=== PATIENT | male | born 1975 | race Caucasian/White ===

== ENCOUNTER 2017-09-01 23:37 | Inpatient (IN) | payer OTHER ==
[2017-09-02] MEDS ORDERED: SODIUM CHLORIDE 0.9% 1,000 ML IV STA ×2 (00:43→07:45)
--- NOTE | 2017-09-02 00:47 | ED ---
Overdose HPI <MikeJose - Last Filed: 09/02/17 07:40> - General Source: patient Mode of arrival: EMS Limitations: no limitations <Abi Cabrales - Last Filed: 09/03/17 07:22> - General Chief Complaint: Overdose Stated Complaint: overdose Time Seen by Provider: 09/02/17 00:26 - History of Present Illness Initial Comments: 42-year-old male patient presents to the emergency department today after having a syncopal episode. Patient states that he does not remember what happened. EMS reported that upon their arrival patient was breathing 4 times per minute, they did administer Narcan, patient regained consciousness was breathing normally after that. Patient denies using any street drugs, states he did have a couple of beers. Patient states he passed out once before, a long time ago, states that he had a negative workup at that time. Patient currently denies any symptoms and states that he feels well other than a dry mouth. States his only past medical history is low back pain for which she just takes plain Tylenol at home. Patient denies any recent rash, fever, chills , shortness breath, chest pain, abdominal pain, nausea, vomiting, diarrhea, constipation, back pain, numbness, tingling, dizziness, weakness, hematuria, dysuria, urinary urgency, urinary frequency, headache, visual changes, or any other complaints. (Abi Cabrales) - Related Data Home Medications Medication Instructions Recorded Confirmed Multivitamins, Thera [Multivitamin 1 tab PO DAILY 09/02/17 09/02/17 (formulary)] Allergies Allergy/AdvReac Type Severity Reaction Status Date / Time No Known Allergies Allergy Verified 09/02/17 11:11 Review of Systems ROS Other: All systems not noted in ROS Statement are negative. <Jose Mckeon - Last Filed: 09/02/17 07:40> ROS Other: All systems not noted in ROS Statement are negative. <Abi Cabrales - Last Filed: 09/03/17 07:22> ROS Statement: Those systems with pertinent positive or pertinent negative responses have been documented in the HPI. Past Medical History Past Medical History: No Reported History Additional Past Medical History / Comment(s): chronic back pain History of Any Multi-Drug Resistant Organisms: None Reported Past Surgical History: No Surgical Hx Reported Past Psychological History: No Psychological Hx Reported Smoking Status: Current every day smoker Past Alcohol Use History: Occasional Past Drug Use History: Heroin <Abi Cabrales - Last Filed: 09/03/17 07:22> General Exam Limitations: no limitations General appearance: alert, in no apparent distress, other (So well-developed, well-nourished adult male patient in no acute distress. Vital signs upon presentation are temperature 98.4F, pulse 101, respirations 18, blood pressure 101/73, pulse ox 96% on room air.) Head exam: Present: atraumatic, normocephalic, normal inspection Eye exam: Present: normal appearance, PERRL, EOMI, other (Pupils are pinpoint). Absent: scleral icterus, conjunctival injection, periorbital swelling ENT exam: Present: normal exam, normal oropharynx, mucous membranes moist Neck exam: Present: normal inspection. Absent: tenderness, meningismus, lymphadenopathy Respiratory exam: Present: normal lung sounds bilaterally. Absent: respiratory distress, wheezes, rales, rhonchi, stridor Cardiovascular Exam: Present: regular rate, normal rhythm, normal heart sounds. Absent: systolic murmur, diastolic murmur, rubs, gallop, clicks GI/Abdominal exam: Present: soft, normal bowel sounds. Absent: distended, tenderness, guarding, rebound, rigid Neurological exam: Present: alert, oriented X3, CN II-XII intact, other ( Strength in all 4 extremities is 5/5.) Psychiatric exam: Present: normal affect, normal mood Skin exam: Present: warm, dry, intact, normal color. Absent: rash <Abi Cabrales - Last Filed: 09/03/17 07:22> Course <Jose Mckeon - Last Filed: 09/02/17 07:40> <Abi Cabrales - Last Filed: 09/03/17 07:22> Vital Signs 09/01/17 09/02/17 09/02/17 23:44 00:08 05:00 Temperature 98.4 F Pulse Rate 101 H 89 89 Respiratory 18 14 Rate Blood Pressure 101/73 92/59 O2 Sat by Pulse 96 98 97 Oximetry 09/02/17 09:05 Temperature Pulse Rate 75 Respiratory 16 Rate Blood Pressure 120/59 O2 Sat by Pulse 99 Oximetry - Reevaluation(s) Reevaluation #1: 09/02/17 06:04 We have repeated CMP and troponin after patient has received fluids. Care will be handed over to Dr. Mckeon who will follow patient until disposition. (Abi Cabrales) Medical Decision Making - Lab Data Result diagrams: 09/02/17 02:00 09/02/17 05:40 <Jose Mckeon - Last Filed: 09/02/17 07:40> - Lab Data Result diagrams: 09/03/17 06:03 09/03/17 06:03 - EKG Data -: EKG Interpreted by Me - Radiology Data Radiology results: report reviewed, image reviewed <Abi Cabrales - Last Filed: 09/03/17 07:22> - Medical Decision Making 42-year-old male patient presented to the emergency department today via EMS with concern for opiate overdose. Physical examination at the time of arrival is unremarkable, patient was alert and oriented. Initial labs did show elevated potassium, acute renal failure with elevated troponin. We did administer 2 L of IV fluids and repeated labs. Care was handed over to Dr. Mckeon at that time. (Abi Cabrales) - Lab Data Lab Results 09/02/17 09/02/17 09/02/17 Range/Units 02:00 02:00 02:00 WBC 20.3 H (3.8-10.6) k/uL RBC 5.17 (4.30-5.90) m/uL Hgb 15.7 (13.0-17.5) gm/dL Hct 49.5 (39.0-53.0) % MCV 95.8 (80.0-100.0) fL MCH 30.4 (25.0-35.0) pg MCHC 31.7 (31.0-37.0) g/dL RDW 13.5 (11.5-15.5) % Plt Count 250 (150-450) k/uL Neutrophils % 87 % Lymphocytes % 4 % Monocytes % 8 % Eosinophils % 0 % Basophils % 0 % Neutrophils # 17.6 H (1.3-7.7) k/uL Lymphocytes # 0.8 L (1.0-4.8) k/uL Monocytes # 1.7 H (0-1.0) k/uL Eosinophils # 0.1 (0-0.7) k/uL Basophils # 0.0 (0-0.2) k/uL PT (9.0-12.0) sec INR (<1.2) APTT (22.0-30.0) sec Sodium 140 (137-145) mmol/L Potassium 6.5 H* (3.5-5.1) mmol/L Chloride 101 (98-107) mmol/L Carbon Dioxide 20 L (22-30) mmol/L Anion Gap 19 mmol/L BUN 19 (9-20) mg/dL Creatinine 2.50 H (0.66-1.25) mg/dL Est GFR (CKD-EPI)AfAm 35 (>60 ml/min/1.73 sqM) Est GFR (CKD-EPI)NonAf 31 (>60 ml/min/1.73 sqM) Glucose 57 L (74-99) mg/dL Calcium 9.4 (8.4-10.2) mg/dL Total Bilirubin 0.5 (0.2-1.3) mg/dL AST 79 H (17-59) U/L ALT 125 H (21-72) U/L Alkaline Phosphatase 72 (38-126) U/L Total Creatine Kinase 395 H (55-170) U/L CK-MB (CK-2) 4.6 H* (0.0-2.4) ng/mL CK-MB (CK-2) Rel Index 1.2 Troponin I 0.149 H* (0.000-0.034) ng/mL Total Protein 8.5 H (6.3-8.2) g/dL Albumin 5.3 H (3.5-5.0) g/dL Urine Color Urine Appearance (Clear) Urine pH (5.0-8.0) Ur Specific [place] (1.001-1.035) Urine Protein (Negative) Urine Glucose (UA) (Negative) Urine Ketones (Negative) Urine Blood (Negative) Urine Nitrite (Negative) Urine Bilirubin (Negative) Urine Urobilinogen (<2.0) mg/dL Ur Leukocyte Esterase (Negative) Urine RBC (0-5) /hpf Urine WBC (0-5) /hpf Urine Bacteria (None) /hpf Cellular Casts (0) /lpf Hyaline Casts (0-2) /lpf Granular Casts (0) /lpf Urine Mucus (None) /hpf Urine Opiates Screen (NotDetected) Ur Oxycodone Screen (NotDetected) Urine Methadone Screen (NotDetected) Ur Propoxyphene Screen (NotDetected) Ur Barbiturates Screen (NotDetected) U Tricyclic Antidepress (NotDetected) Ur Phencyclidine Scrn (NotDetected) Ur Amphetamines Screen (NotDetected) U Methamphetamines Scrn (NotDetected) U Benzodiazepines Scrn (NotDetected) Urine Cocaine Screen (NotDetected) U Marijuana (THC) Screen (NotDetected) Serum Alcohol <10 mg/dL 09/02/17 09/02/17 09/02/17 Range/Units 02:00 02:00 02:00 WBC (3.8-10.6) k/uL RBC (4.30-5.90) m/uL Hgb (13.0-17.5) gm/dL Hct (39.0-53.0) % MCV (80.0-100.0) fL MCH (25.0-35.0) pg MCHC (31.0-37.0) g/dL RDW (11.5-15.5) % Plt Count (150-450) k/uL Neutrophils % % Lymphocytes % % Monocytes % % Eosinophils % % Basophils % % Neutrophils # (1.3-7.7) k/uL Lymphocytes # (1.0-4.8) k/uL Monocytes # (0-1.0) k/uL Eosinophils # (0-0.7) k/uL Basophils # (0-0.2) k/uL PT 10.1 (9.0-12.0) sec INR 1.0 (<1.2) APTT 19.5 L (22.0-30.0) sec Sodium (137-145) mmol/L Potassium (3.5-5.1) mmol/L Chloride (98-107) mmol/L Carbon Dioxide (22-30) mmol/L Anion Gap mmol/L BUN (9-20) mg/dL Creatinine (0.66-1.25) mg/dL Est GFR (CKD-EPI)AfAm (>60 ml/min/1.73 sqM) Est GFR (CKD-EPI)NonAf (>60 ml/min/1.73 sqM) Glucose (74-99) mg/dL Calcium (8.4-10.2) mg/dL Total Bilirubin (0.2-1.3) mg/dL AST (17-59) U/L ALT (21-72) U/L Alkaline Phosphatase (38-126) U/L Total Creatine Kinase (55-170) U/L CK-MB (CK-2) (0.0-2.4) ng/mL CK-MB (CK-2) Rel Index Troponin I (0.000-0.034) ng/mL Total Protein (6.3-8.2) g/dL Albumin (3.5-5.0) g/dL Urine Color Yellow Urine Appearance Cloudy (Clear) Urine pH 5.5 (5.0-8.0) Ur Specific [place] 1.013 (1.001-1.035) Urine Protein 3+ H (Negative) Urine Glucose (UA) Negative (Negative) Urine Ketones Negative (Negative) Urine Blood Trace H (Negative) Urine Nitrite Negative (Negative) Urine Bilirubin Negative (Negative) Urine Urobilinogen <2.0 (<2.0) mg/dL Ur Leukocyte Esterase Negative (Negative) Urine RBC 3 (0-5) /hpf Urine WBC 29 H (0-5) /hpf Urine Bacteria Rare H (None) /hpf Cellular Casts 20 (0) /lpf Hyaline Casts 101 H (0-2) /lpf Granular Casts 61 (0) /lpf Urine Mucus Many H (None) /hpf Urine Opiates Screen Detected H (NotDetected) Ur Oxycodone Screen Not Detected (NotDetected) Urine Methadone Screen Not Detected (NotDetected) Ur Propoxyphene Screen Not Detected (NotDetected) Ur Barbiturates Screen Not Detected (NotDetected) U Tricyclic Antidepress Not Detected (NotDetected) Ur Phencyclidine Scrn Not Detected (NotDetected) Ur Amphetamines Screen Not Detected (NotDetected) U Methamphetamines Scrn Not Detected (NotDetected) U Benzodiazepines Scrn Not Detected (NotDetected) Urine Cocaine Screen Detected H (NotDetected) U Marijuana (THC) Screen Not Detected (NotDetected) Serum Alcohol mg/dL 09/02/17 09/02/17 Range/Units 05:40 05:40 WBC (3.8-10.6) k/uL RBC (4.30-5.90) m/uL Hgb (13.0-17.5) gm/dL Hct (39.0-53.0) % MCV (80.0-100.0) fL MCH (25.0-35.0) pg MCHC (31.0-37.0) g/dL RDW (11.5-15.5) % Plt Count (150-450) k/uL Neutrophils % % Lymphocytes % % Monocytes % % Eosinophils % % Basophils % % Neutrophils # (1.3-7.7) k/uL Lymphocytes # (1.0-4.8) k/uL Monocytes # (0-1.0) k/uL Eosinophils # (0-0.7) k/uL Basophils # (0-0.2) k/uL PT (9.0-12.0) sec INR (<1.2) APTT (22.0-30.0) sec Sodium 135 L (137-145) mmol/L Potassium 6.4 H* (3.5-5.1) mmol/L Chloride 104 (98-107) mmol/L Carbon Dioxide 20 L (22-30) mmol/L Anion Gap 11 mmol/L BUN 19 (9-20) mg/dL Creatinine 2.10 H (0.66-1.25) mg/dL Est GFR (CKD-EPI)AfAm 44 (>60 ml/min/1.73 sqM) Est GFR (CKD-EPI)NonAf 38 (>60 ml/min/1.73 sqM) Glucose 83 (74-99) mg/dL Calcium 8.0 L (8.4-10.2) mg/dL Total Bilirubin 0.4 (0.2-1.3) mg/dL AST 67 H (17-59) U/L ALT 107 H (21-72) U/L Alkaline Phosphatase 58 (38-126) U/L Total Creatine Kinase (55-170) U/L CK-MB (CK-2) (0.0-2.4) ng/mL CK-MB (CK-2) Rel Index Troponin I 0.147 H* (0.000-0.034) ng/mL Total Protein 7.0 (6.3-8.2) g/dL Albumin 4.4 (3.5-5.0) g/dL Urine Color Urine Appearance (Clear) Urine pH (5.0-8.0) Ur Specific [place] (1.001-1.035) Urine Protein (Negative) Urine Glucose (UA) (Negative) Urine Ketones (Negative) Urine Blood (Negative) Urine Nitrite (Negative) Urine Bilirubin (Negative) Urine Urobilinogen (<2.0) mg/dL Ur Leukocyte Esterase (Negative) Urine RBC (0-5) /hpf Urine WBC (0-5) /hpf Urine Bacteria (None) /hpf Cellular Casts (0) /lpf Hyaline Casts (0-2) /lpf Granular Casts (0) /lpf Urine Mucus (None) /hpf Urine Opiates Screen (NotDetected) Ur Oxycodone Screen (NotDetected) Urine Methadone Screen (NotDetected) Ur Propoxyphene Screen (NotDetected) Ur Barbiturates Screen (NotDetected) U Tricyclic Antidepress (NotDetected) Ur Phencyclidine Scrn (NotDetected) Ur Amphetamines Screen (NotDetected) U Methamphetamines Scrn (NotDetected) U Benzodiazepines Scrn (NotDetected) Urine Cocaine Screen (NotDetected) U Marijuana (THC) Screen (NotDetected) Serum Alcohol mg/dL - EKG Data EKG Comments: EKG obtained at 00 35 shows normal sinus rhythm with a ventricular rate of 88, NV interval 138, QR lutheran 88, QT 352, QTc 425. No evidence of ST elevation or depression. (Abi Cabrales) - Radiology Data Two-view x-ray of the chest is obtained. Report was reviewed in its entirety. Impression by Dr. Waldron shows no active cardiopulmonary disease. Possible cardiomegaly. (Abi Cabrales) Disposition <Jose Mckeon - Last Filed: 09/02/17 07:40> <Abi Cabrales - Last Filed: 09/03/17 07:22> Clinical Impression: Poisoning by opiate or related narcotic, Cocaine intoxication, Hyperkalemia, Acute kidney failure, Elevated troponin I level Disposition: ADMITTED IP TO THIS HOSP Condition: Fair
--- NOTE | 2017-09-02 01:38 | XR ---
EXAMINATION TYPE: XR chest 2V DATE OF EXAM: 09/02/2017 COMPARISON: NONE HISTORY: Syncope TECHNIQUE: Frontal and lateral views of the chest are obtained. FINDINGS: There is no heart failure nor confluent pneumonic infiltrate. Costophrenic angles are destinee r. Bony thorax is intact. Pulmonary vascularity is normal. There are chest leads. IMPRESSION: No active cardiopulmonary disease. Possible cardiomegaly.
[2017-09-02 02:29] LABS: Basophils % (A) 0 %; Eosinophils # (A) 0.1 k/uL (0-0.7); Eosinophils % (A) 0 %; HCT 49.5 % (39.0-53.0); HGB 15.7 gm/dL (13.0-17.5); Lymphocytes # (A) 0.8 k/uL (1.0-4.8); Lymphocytes % (A) 4 %; MCH 30.4 pg (25.0-35.0); MCHC 31.7 g/dL (31.0-37.0); MCV 95.8 fL (80.0-100.0); Mean Platelet Volume 7.7; Monocytes # (A) 1.7 k/uL (0-1.0); Monocytes % (A) 8 %; Neutrophils # (A) 17.6 k/uL (1.3-7.7); Neutrophils % (A) 87 %; Platelet Count 250 k/uL (150-450); RBC 5.17 m/uL (4.30-5.90); RDW 13.5 % (11.5-15.5); WBC 20.3 k/uL (3.8-10.6)
[2017-09-02 02:36] LABS: ALT 125 U/L (21-72); AST 79 U/L (17-59); Albumin 5.3 g/dL (3.5-5.0); Alcohol <10 mg/dL; Alkaline Phosphatase 72 U/L (38-126); Anion Gap 19 mmol/L; Blood Urea Nitrogen 19 mg/dL (9-20); Calcium 9.4 mg/dL (8.4-10.2); Carbon Dioxide 20 mmol/L (22-30); Chloride 101 mmol/L (98-107); Glucose 57 mg/dL (74-99); Sodium 140 mmol/L (137-145); Total Bilirubin 0.5 mg/dL (0.2-1.3); Total Protein 8.5 g/dL (6.3-8.2)
[2017-09-02 02:40] LABS: Prothrombin Time 10.1 sec (9.0-12.0)
[2017-09-02 02:43] LABS: Appearance,Urine Cloudy (Clear); Bacteria,Urine Rare /hpf; Bilirubin,Urine Negative (Negative); Blood,Urine Trace (Negative); Cellular Casts,Urine 20 /lpf (0); Color,Urine Yellow; Glucose,Urine (UA) Negative (Negative); Granular Casts,Urine 61 /lpf (0); Hyaline Casts,Urine 101 /lpf (0-2); Ketones,Urine Negative (Negative); Leukocyte Esterase,Urine Negative (Negative); Mucus,Urine Many /hpf; Nitrite,Urine Negative (Negative); PH, Urine 5.5 (5.0-8.0); Potassium 6.5 mmol/L (3.5-5.1); Protein,Urine 3+ (Negative); RBC,Urine 3 /hpf (0-5); Specific Gravity,Urine 1.013 (1.001-1.035); Urobilinogen,Urine <2.0 mg/dL (<2.0); WBC,Urine 29 /hpf (0-5)
[2017-09-02 02:49] LABS: Phencyclidine Screen,Urine Not Detected (NotDetected)
[2017-09-02 02:50] LABS: Amphetamine Screen,Urine Not Detected (NotDetected); Barbiturate Screen,Urine Not Detected (NotDetected); Benzodiazepines Screen,Urine Not Detected (NotDetected); Cocaine Screen,Urine Detected (NotDetected); Methadone Screen, Urine Not Detected (NotDetected); Opiate Screen,Urine Detected (NotDetected); Oxycodone Screen, Urine Not Detected (NotDetected); Tricyclic Antidepressant,Urine Not Detected (NotDetected); Urn Cannabinoid Scrn Not Detected (NotDetected)
[2017-09-02 02:55] LABS: Partial Thromboplastin Time 19.5 sec (22.0-30.0)
[2017-09-02 03:03] LABS: Creatine Kinase MB 4.6 ng/mL (0.0-2.4)
[2017-09-02 03:04] LABS: Troponin I 0.149 ng/mL (0.000-0.034)
[2017-09-02] MEDS ORDERED: SODIUM CHLORIDE 0.9% 1,000 ML IV ONE (03:24)
[2017-09-02 06:13] LABS: Albumin 4.4 g/dL (3.5-5.0); Total Bilirubin 0.4 mg/dL (0.2-1.3)
[2017-09-02 06:23] LABS: Potassium 6.4 mmol/L (3.5-5.1)
[2017-09-02] MEDS ORDERED: SODIUM POLYSTYRENE SULFONATE 15 GM/60 ML BOTTLE PO STA (07:16)
[2017-09-02] MEDS ORDERED: DEXTROSE 50%-WATER 50 ML SYRINGE IVP STA (07:39)
[2017-09-02] MEDS ORDERED: CALCIUM GLUCONATE 1,000 MG in SODIUM CHLORIDE 0.9% 100 ML IVPB ONE (07:39)
[2017-09-02] MEDS ORDERED: INSULIN REGULAR 100 UNIT/ML VIAL IV STA (07:39)
[2017-09-02] MEDS ORDERED: NITROGLYCERIN SL TABS 0.4 MG TAB SUBLINGUAL PRN (07:42)
[2017-09-02] MEDS ORDERED: SODIUM BICARB 8.4% 50 ML SYR (1 MEQ/ML) IV STA (07:43)
--- NOTE | 2017-09-02 10:44 | P.NPCON ---
History of Present Illness - Reason for Consult acute renal failure - Chief Complaint Acute kidney injury, hyperkalemia - History of Present Illness This is a 42-year-old male seen in consultation because of acute kidney injury hyperkalemia and gap acidosis. Additionally he is noted to have 3+ proteinuria on the UA. He was admitted after being unconscious. With Narcan he regained consciousness. Drug screen showed positive cocaine and opiates. Patient does admit to using it occasionally. He is no knowledge of any kidney disease or any medical problems otherwise except for chronic back pain for which she occasionally takes nonsteroidals but has not had any recently. No history of prostatism hematuria kidney stones. No family history of kidney disease. Past Medical History Past Medical History: No Reported History Additional Past Medical History / Comment(s): chronic back pain History of Any Multi-Drug Resistant Organisms: None Reported Past Surgical History: No Surgical Hx Reported Past Psychological History: No Psychological Hx Reported Smoking Status: Current every day smoker Past Alcohol Use History: Occasional Additional Past Alcohol Use History / Comment(s): IV heroin about 4-5 years ago. Occasional cocaine currently Past Drug Use History: Cocaine, Heroin, IV Drug Use Medications and Allergies Home Medications Medication Instructions Recorded Confirmed Type No Known Home Medications 03/16/14 11/23/15 History Allergies Allergy/AdvReac Type Severity Reaction Status Date / Time No Known Allergies Allergy Verified 09/01/17 23:44 Physical Exam Vitals: Vital Signs Temp Pulse Pulse Resp BP BP Pulse Ox 09/02/17 09:58 72 20 09/02/17 09:56 97.1 F L 72 20 122/70 99 09/02/17 09:32 97.1 F L 72 20 143/52 96 09/02/17 09:05 75 16 120/59 99 09/02/17 05:00 89 14 92/59 97 09/02/17 00:08 89 98 09/01/17 23:44 98.4 F 101 H 18 101/73 96 Intake and Output 09/01/17 09/02/17 09/02/17 22:59 06:59 14:59 Intake Total 1999 Balance 1999 Intake: Intake, IV Titration 2000 Amount Sodium Chloride 0.9% 1, 1000 000 ml @ 999 mls/hr IV . Q1H1M ONE Rx#:[id number] Sodium Chloride 0.9% 1, 1000 000 ml @ 999 mls/hr IV . Q1H1M STA Rx#:[id number] Other: Voiding Method Toilet Weight 129.274 kg On exam concurrently is awake alert oriented HEENT exam no JVP neck is supple no facial asymmetry Lungs are clear to auscultation percussion good air entry bilaterally Heart sounds are unremarkable for any murmur rub gallop Abdomen soft nontender no organomegaly status masses Extremity exam was no edema Is warm to touch. Neurologically awake alert oriented no focal motor deficit comfortable. Results - Lab Results Most recent lab results Calcium 8.0 mg/dL (8.4-10.2) L 09/02/17 05:40 09/02/17 02:00 09/02/17 05:40 Assessment and Plan Assessment: Impression 1. Acute kidney injury secondary to cocaine and vasoconstriction in the renal vasculature. His CK is slightly high at 395 which is not expected to cause any rhabdomyolysis related myoglobinuric renal injury. His proteinuria though needs further explanation as it is 3+ on urinalysis. His creatinine has improved from 2.5-2.1, with hydration 2. 3+ proteinuria needs further clarification. At times transient proteinuria can occur in acute kidney injury. 3. High Gap acidosis. His bicarb is 20 and anion gap is 19. The delta gap therefore is 7, indicating an element of metabolic alkalosis as well. The cause of the high anion gap acidosis is secondary to acute kidney injury, there might have been transient and lactic acidosis either from seizures or from the cocaine. His gap has resolved from 19-to 11, bicarb stays at 20. 4. Hyperkalemia secondary acute kidney injury and possible mild rhabdomyolysis , this is expected to resolve if it does not we will need to further look into the cause of hyperkalemia such as obstructive causes. Recommendation 1. Continue IVF normal saline at 150 an hour. 2. Check stat potassium and call me with the results. 3. Maintain strict I's and O's. 4. Obtain urine protein to creatinine ratio, we will wait till tomorrow to see if this resolves. 5. Monitor labs tomorrow. Thank you for this consultation we will continue to follow closely.
[2017-09-02 12:06] LABS: Basophils % (A) 0 %; Eosinophils % (A) 0 %; HCT 38.7 % (39.0-53.0); HGB 12.9 gm/dL (13.0-17.5); Lymphocytes # (A) 1.3 k/uL (1.0-4.8); Lymphocytes % (A) 9 %; MCH 31.3 pg (25.0-35.0); MCHC 33.3 g/dL (31.0-37.0); MCV 94.1 fL (80.0-100.0); Mean Platelet Volume 8.1; Monocytes # (A) 1.2 k/uL (0-1.0); Monocytes % (A) 9 %; Neutrophils # (A) 10.8 k/uL (1.3-7.7); Neutrophils % (A) 80 %; Platelet Count 164 k/uL (150-450); RBC 4.11 m/uL (4.30-5.90); RDW 13.6 % (11.5-15.5); WBC 13.4 k/uL (3.8-10.6)
[2017-09-02] MEDS ORDERED: ONDANSETRON 4 MG/2 ML VIAL IVP PRN (12:11)
--- NOTE | 2017-09-02 12:23 | P.CRDCN ---
History of Present Illness Consult date: 09/02/17 Requesting physician: Sangeeta Toussaint Reason for Consult (text): elevated troponin Chief complaint: overdose History of present illness: This is a pleasant 42-year-old gentleman with history of chronic back pain, smoking and illicit drug use including heroin and cocaine in the past. Presented to the emergency department after partying with friends and becoming unresponsive for which she required Narcan. Tested positive for both cocaine and opiates although patient denies taking any opiates or heroin. His chest x- ray on admission showed no active cardiopulmonary disease. EKG showed normal sinus rhythm without ischemic changes. Laboratory values showed white count 20, 000, potassium of 6.5, BUN of 19 and creatinine of 2.5 as well as elevated ALT and AST. We were asked to see the patient in consultation due to elevated troponins of 0.149 and 0.147. Patient was mildly hypotensive upon presentation. Vital signs are currently stable. The patient is complaining of intermittent chest discomfort following heavy lifting or exertion. Says the pain is worsened with certain movements and palpation. Relieved with time. No associated symptoms. He denies complaints of shortness of breath.. Family history includes maternal grandfather who had an CT in his 50s. Otherwise no history of CAD. Past Medical History Past Medical History: No Reported History Additional Past Medical History / Comment(s): chronic back pain History of Any Multi-Drug Resistant Organisms: None Reported Past Surgical History: No Surgical Hx Reported Past Psychological History: No Psychological Hx Reported Smoking Status: Current every day smoker Past Alcohol Use History: Occasional Additional Past Alcohol Use History / Comment(s): IV heroin about 4-5 years ago. Occasional cocaine currently Past Drug Use History: Cocaine, Heroin, IV Drug Use Medications and Allergies Home Medications Medication Instructions Recorded Confirmed Type Multivitamins, Thera [Multivitamin 1 tab PO DAILY 09/02/17 09/02/17 History (formulary)] Allergies Allergy/AdvReac Type Severity Reaction Status Date / Time No Known Allergies Allergy Verified 09/02/17 11:11 Physical Exam Vitals: Vital Signs Temp Pulse Pulse Resp BP BP Pulse Ox 09/02/17 09:58 72 20 09/02/17 09:56 97.1 F L 72 20 122/70 99 09/02/17 09:32 97.1 F L 72 20 143/52 96 09/02/17 09:05 75 16 120/59 99 09/02/17 05:00 89 14 92/59 97 09/02/17 00:08 89 98 09/01/17 23:44 98.4 F 101 H 18 101/73 96 Intake and Output 09/01/17 09/02/17 09/02/17 22:59 06:59 14:59 Intake Total 1999 Balance 1999 Intake: Intake, IV Titration 2000 Amount Sodium Chloride 0.9% 1, 1000 000 ml @ 999 mls/hr IV . Q1H1M ONE Rx#:[id number] Sodium Chloride 0.9% 1, 1000 000 ml @ 999 mls/hr IV . Q1H1M STA Rx#:[id number] Other: Voiding Method Toilet Weight 129.274 kg PHYSICAL EXAMINATION: HEENT: Head is atraumatic, normocephalic. Pupils equal, round. Neck is supple. There is no elevated jugular venous pressure. HEART EXAMINATION: Heart sounds regular, S1 and S2 normal. No murmur or gallop heard. CHEST EXAMINATION: Lungs are clear to auscultation and precussion. No chest wall tenderness is noted on palpation or with deep breathing. ABDOMEN: Soft, nontender. Bowel sounds are heard. No organomegaly noted. EXTREMITIES: 2+ peripheral pulses with no evidence of peripheral edema and no calf tenderness noted. NEUROLOGIC patient is awake, alert and oriented x3. . Results 09/02/17 11:45 09/02/17 05:40 Cardiac Enzymes 09/02/17 09/02/17 09/02/17 Range/Units 02:00 02:00 05:40 AST 79 H 67 H (17-59) U/L CK-MB (CK-2) 4.6 H* (0.0-2.4) ng/mL Troponin I 0.149 H* (0.000-0.034) ng/mL 09/02/17 Range/Units 05:40 AST (17-59) U/L CK-MB (CK-2) (0.0-2.4) ng/mL Troponin I 0.147 H* (0.000-0.034) ng/mL Coagulation 09/02/17 Range/Units 02:00 PT 10.1 (9.0-12.0) sec APTT 19.5 L (22.0-30.0) sec CBC 09/02/17 Range/Units 02:00 WBC 20.3 H (3.8-10.6) k/uL RBC 5.17 (4.30-5.90) m/uL Hgb 15.7 (13.0-17.5) gm/dL Hct 49.5 (39.0-53.0) % Plt Count 250 (150-450) k/uL Comprehensive Metabolic Panel 09/02/17 09/02/17 Range/Units 02:00 05:40 Sodium 140 135 L (137-145) mmol/L Potassium 6.5 H* 6.4 H* (3.5-5.1) mmol/L Chloride 101 104 (98-107) mmol/L Carbon Dioxide 20 L 20 L (22-30) mmol/L BUN 19 19 (9-20) mg/dL Creatinine 2.50 H 2.10 H (0.66-1.25) mg/dL Glucose 57 L 83 (74-99) mg/dL Calcium 9.4 8.0 L (8.4-10.2) mg/dL AST 79 H 67 H (17-59) U/L ALT 125 H 107 H (21-72) U/L Alkaline Phosphatase 72 58 (38-126) U/L Total Protein 8.5 H 7.0 (6.3-8.2) g/dL Albumin 5.3 H 4.4 (3.5-5.0) g/dL Current Medications Generic Name Dose Route Start Last Admin Trade Name Freq PRN Reason Stop Dose Admin Aspirin 325 mg 09/03/17 09:00 Aspirin PO DAILY CHERIE Sodium Chloride 1,000 mls @ 150 mls/hr 09/02/17 07:45 09/02/17 08:50 Saline 0.9% IV 09/02/17 14:24 150 mls/hr .Q6H40M STA Administration Nitroglycerin 0.4 mg 09/02/17 07:42 Nitrostat SUBLINGUAL Q5M PRN Chest Pain Intake and Output 09/01/17 09/02/17 09/02/17 22:59 06:59 14:59 Intake Total 1999 Balance 1999 Intake: Intake, IV Titration 2000 Amount Sodium Chloride 0.9% 1, 1000 000 ml @ 999 mls/hr IV . Q1H1M ONE Rx#:[id number] Sodium Chloride 0.9% 1, 1000 000 ml @ 999 mls/hr IV . Q1H1M STA Rx#:[id number] Other: Voiding Method Toilet Weight 129.274 kg 09/02/17 02:00 09/02/17 05:40 EKG Interpretations (text) Normal sinus rhythm Assessment and Plan Assessment: #1 overdose, given Narcan, tested positive for opiates and cocaine #2 nicotine dependence #3 history of CAD in maternal grandfather #4 elevated troponins #5 acute kidney injury Plan: From Cardiology's perspective, we will continue to follow troponins and renal function. Troponin elevation could be secondary to vasospam from cocaine use. We will obtain a 2-d echo with doppler. Continue to monitor renal function. Will likely consider stress testing once renal function improves. Further recommendations to follow. FORESTRY LABORER note has been reviewed, I agree with a documented findings and plan of care. Patient was seen and examined.
[2017-09-02 12:24] LABS: Calcium 8.6 mg/dL (8.4-10.2); Magnesium 1.8 mg/dL (1.6-2.3); Phosphorus 4.1 mg/dL (2.5-4.5); Potassium 4.6 mmol/L (3.5-5.1); Total Bilirubin 0.3 mg/dL (0.2-1.3); Total Protein 6.4 g/dL (6.3-8.2)
--- NOTE | 2017-09-02 12:26 | P.HPIM ---
History of Present Illness H&P Date: 09/02/17 Chief Complaint: Unresponsive This is a 42-year-old male who was brought into the emergency room after he was found to be unresponsive at the [facility]. Patient was evaluated by EMS and was given Narcan. He responded well to Narcan and was awake afterward. He was out into the emergency room and was found to have evidence of acute kidney injury and significant hyperkalemia. His hyperkalemia was treated medically and patient received aggressive IV fluid hydration. He was also noted to have elevated troponin without acute ischemic changes on 12-lead ECG. He was seen by both nephrology and cardiology. Patient himself denies any chest pain. He reports using cocaine at the constitution party yesterday. He said that he uses cocaine intermittently. He has a history of IV drug use but he stopped 5 years ago. He does not have any concerns now. Review of Systems Review of system: 14 points review of systems were obtained and were negative except to what were mentioned in the HPI. Past Medical History Past Medical History: No Reported History Additional Past Medical History / Comment(s): chronic back pain History of Any Multi-Drug Resistant Organisms: None Reported Past Surgical History: No Surgical Hx Reported Past Psychological History: No Psychological Hx Reported Smoking Status: Current every day smoker Past Alcohol Use History: Occasional Additional Past Alcohol Use History / Comment(s): IV heroin about 4-5 years ago. Occasional cocaine currently Past Drug Use History: Cocaine, Heroin, IV Drug Use Medications and Allergies Home Medications Medication Instructions Recorded Confirmed Type Multivitamins, Thera [Multivitamin 1 tab PO DAILY 09/02/17 09/02/17 History (formulary)] Allergies Allergy/AdvReac Type Severity Reaction Status Date / Time No Known Allergies Allergy Verified 09/02/17 11:11 Physical Exam Vitals: Vital Signs Temp Pulse Pulse Resp BP BP Pulse Ox 09/02/17 12:01 97.0 F L 77 16 103/41 97 09/02/17 11:40 72 20 09/02/17 09:58 72 20 09/02/17 09:56 97.1 F L 72 20 122/70 99 09/02/17 09:32 97.1 F L 72 20 143/52 96 09/02/17 09:05 75 16 120/59 99 09/02/17 05:00 89 14 92/59 97 09/02/17 00:08 89 98 09/01/17 23:44 98.4 F 101 H 18 101/73 96 Intake and Output 09/01/17 09/02/17 09/02/17 22:59 06:59 14:59 Intake Total 1999 Balance 1999 Intake: Intake, IV Titration 2000 Amount Sodium Chloride 0.9% 1, 1000 000 ml @ 999 mls/hr IV . Q1H1M ONE Rx#:[id number] Sodium Chloride 0.9% 1, 1000 000 ml @ 999 mls/hr IV . Q1H1M STA Rx#:[id number] Other: Voiding Method Toilet Weight 129.274 kg General: The patient is awake and alert, in no distress Eye: there is normal conjunctiva bilaterally. Neck: The neck is supple, there is no JVD. Cardiovascular: Normal S1-S2, no S3-S4, no murmurs. Respiratory: Lungs clear to auscultation bilaterally Gastrointestinal: Abdomen is soft, nontender Musculoskeletal: There is no pedal edema. Neurological:. Speech is normal. Skin: Skin is warm and dry Results CBC & Chem 7: 09/02/17 11:45 09/02/17 05:40 Labs: Abnormal Lab Results - Last 24 Hours (Table) 09/02/17 09/02/17 09/02/17 Range/Units 02:00 02:00 02:00 WBC 20.3 H (3.8-10.6) k/uL RBC (4.30-5.90) m/uL Hgb (13.0-17.5) gm/dL Hct (39.0-53.0) % Neutrophils # 17.6 H (1.3-7.7) k/uL Lymphocytes # 0.8 L (1.0-4.8) k/uL Monocytes # 1.7 H (0-1.0) k/uL APTT (22.0-30.0) sec Sodium (137-145) mmol/L Potassium 6.5 H* (3.5-5.1) mmol/L Carbon Dioxide 20 L (22-30) mmol/L Creatinine 2.50 H (0.66-1.25) mg/dL Glucose 57 L (74-99) mg/dL Calcium (8.4-10.2) mg/dL AST 79 H (17-59) U/L ALT 125 H (21-72) U/L Total Creatine Kinase 395 H (55-170) U/L CK-MB (CK-2) 4.6 H* (0.0-2.4) ng/mL Troponin I 0.149 H* (0.000-0.034) ng/mL Total Protein 8.5 H (6.3-8.2) g/dL Albumin 5.3 H (3.5-5.0) g/dL Urine Protein (Negative) Urine Blood (Negative) Urine WBC (0-5) /hpf Urine Bacteria (None) /hpf Hyaline Casts (0-2) /lpf Urine Mucus (None) /hpf Urine Opiates Screen (NotDetected) Urine Cocaine Screen (NotDetected) 09/02/17 09/02/17 09/02/17 Range/Units 02:00 02:00 02:00 WBC (3.8-10.6) k/uL RBC (4.30-5.90) m/uL Hgb (13.0-17.5) gm/dL Hct (39.0-53.0) % Neutrophils # (1.3-7.7) k/uL Lymphocytes # (1.0-4.8) k/uL Monocytes # (0-1.0) k/uL APTT 19.5 L (22.0-30.0) sec Sodium (137-145) mmol/L Potassium (3.5-5.1) mmol/L Carbon Dioxide (22-30) mmol/L Creatinine (0.66-1.25) mg/dL Glucose (74-99) mg/dL Calcium (8.4-10.2) mg/dL AST (17-59) U/L ALT (21-72) U/L Total Creatine Kinase (55-170) U/L CK-MB (CK-2) (0.0-2.4) ng/mL Troponin I (0.000-0.034) ng/mL Total Protein (6.3-8.2) g/dL Albumin (3.5-5.0) g/dL Urine Protein 3+ H (Negative) Urine Blood Trace H (Negative) Urine WBC 29 H (0-5) /hpf Urine Bacteria Rare H (None) /hpf Hyaline Casts 101 H (0-2) /lpf Urine Mucus Many H (None) /hpf Urine Opiates Screen Detected H (NotDetected) Urine Cocaine Screen Detected H (NotDetected) 09/02/17 09/02/17 09/02/17 Range/Units 05:40 05:40 11:45 WBC 13.4 H (3.8-10.6) k/uL RBC 4.11 L (4.30-5.90) m/uL Hgb 12.9 L (13.0-17.5) gm/dL Hct 38.7 L (39.0-53.0) % Neutrophils # 10.8 H (1.3-7.7) k/uL Lymphocytes # (1.0-4.8) k/uL Monocytes # 1.2 H (0-1.0) k/uL APTT (22.0-30.0) sec Sodium 135 L (137-145) mmol/L Potassium 6.4 H* (3.5-5.1) mmol/L Carbon Dioxide 20 L (22-30) mmol/L Creatinine 2.10 H (0.66-1.25) mg/dL Glucose (74-99) mg/dL Calcium 8.0 L (8.4-10.2) mg/dL AST 67 H (17-59) U/L ALT 107 H (21-72) U/L Total Creatine Kinase (55-170) U/L CK-MB (CK-2) (0.0-2.4) ng/mL Troponin I 0.147 H* (0.000-0.034) ng/mL Total Protein (6.3-8.2) g/dL Albumin (3.5-5.0) g/dL Urine Protein (Negative) Urine Blood (Negative) Urine WBC (0-5) /hpf Urine Bacteria (None) /hpf Hyaline Casts (0-2) /lpf Urine Mucus (None) /hpf Urine Opiates Screen (NotDetected) Urine Cocaine Screen (NotDetected) Thrombosis Risk Factor Assmnt - Choose All That Apply Any of the Below Risk Factors Present?: Yes Each Factor Represents 1 point: Age 41-60 years, Obesity (BMI >25) Other Risk Factors: No Other congenital or acquired thrombophilia - If yes, enter type in comment: No Thrombosis Risk Factor Assessment Total Risk Factor Score: 2 Thrombosis Risk Factor Assessment Level: Low Risk Assessment and Plan Assessment: 1. Opiate overdose secondary to cocaine use reversed with Narcan by EMS 2. Altered mental status/unresponsiveness secondary to #1 3. Acute kidney injury: Possibly related to vasoconstriction. Seen and evaluated by nephrology. Continue aggressive IV fluid hydration. 4. Mild rhabdomyolysis: Repeat creatinine kinase in the morning 5. Troponin elevation, most likely non-thrombotic troponin leak. Patient denies any chest pain. 12-lead ECG showed no acute ischemic changes. Echocardiogram ordered. Seen and evaluated by cardiology, appreciate recommendations. Continue telemetry monitoring. 6. Acute metabolic acidosis secondary to underlying kidney failure 7. Remote history of IV drug use, with screen for hepatitis C and HIV 8. Polysubstance abuse including cocaine and opiates, patient was counseled extensively. He said that he only uses cocaine occasionally. He verbalized understanding so the risks. 9. DVT prophylaxis with subcu heparin
[2017-09-02 12:51] LABS: Creatine Kinase MB 8.2 ng/mL (0.0-2.4); Troponin I 0.103 ng/mL (0.000-0.034)
--- NOTE | 2017-09-02 15:44 | ECHOF ---
Referral Reason:elevated troponin MEASUREMENTS -------- HEIGHT: 180.3 cm WEIGHT: 86.2 kg BP: RVIDd: 3.7 cm (< 3.3) IVSd: 1.2 cm (0.6 - 1.1) LVIDd: 4.8 cm (3.9 - 5.3) LVPWd: 1.2 cm (0.6 - 1.1) IVSs: 1.6 cm LVIDs: 3.4 cm LVPWs: 1.8 cm Ao Diam: 4.0 cm (2.0 - 3.7) AV Cusp: 2.4 cm (1.5 - 2.6) LA Diam: 3.2 cm (2.7 - 3.8) MV EXCURSION: 18.395 mm (> 18.000) MV EF SLOPE: 118 mm/s (70 - 150) EPSS: 0.1 cm MV E Jhonathan: 1.00 m/s MV DecT: 216 ms MV A Jhonathan: 0.68 m/s MV E/A Ratio: 1.48 RAP: 15.00 mmHg RVSP: 21.51 mmHg FINDINGS -------- Sinus rhythm. This was a technically good study. The left ventricular size is normal. There is mild concentric left ventricular hypertrophy. Overa ll left ventricular systolic function is normal with, an EF between 55 - 60 %. The right ventricle is mild to moderately enlarged. The left atrium is normal in size. The right atrium is normal in size. The aortic valve is trileaflet, and appears structurally normal. No aortic stenosis or regurgitation. The mitral valve is normal. There is trace mitral regurgitation. Trace tricuspid regurgitation present. There is no evidence of pulmonary hypertension. The right ventricular systolic pressure, as measured by Doppler, is 21.51mmHg. There is no pulmonic regurgitation present. The aortic root is dilated measuring 4.0 cm. The inferior vena cava is mildly dilated. There is no pericardial effusion. CONCLUSIONS -------- 1. Sinus rhythm. 2. This was a technically good study. 3. The left ventricular size is normal. 4. There is mild concentric left ventricular hypertrophy. 5. Overall left ventricular systolic function is normal with, an EF between 55 - 60 %. 6. The right ventricle is mild to moderately enlarged. 7. The left atrium is normal in size. 8. The aortic valve is trileaflet, and appears structurally normal. No aortic stenosis or regurgitati on. 9. There is trace mitral regurgitation. 10. Trace tricuspid regurgitation present. 11. There is no evidence of pulmonary hypertension. 12. There is no pulmonic regurgitation present. 13. The aortic root is dilated measuring 4.0 cm 14. The inferior vena cava is mildly dilated. 15. There is no pericardial effusion. [employer] INSPECTOR: Carine Johnson RDCS
[2017-09-02 17:30] LABS: Creatine Kinase MB 5.5 ng/mL (0.0-2.4); Troponin I 0.066 ng/mL (0.000-0.034)
[2017-09-02] MEDS: ACETAMINOPHEN TAB 325 MG TAB PO PRN (20:51)
[2017-09-02] MEDS: HEPARIN SODIUM,PORCINE 5,000 UNIT/ML 1 ML VIAL SQ SCH (20:52)
[2017-09-02 23:14] LABS: Hepatitis A Antibody IgM Non-Reactive (Non-Reactive); Hepatitis B Core IgM Non-Reactive (Non-Reactive)
[2017-09-03 06:41] LABS: Basophils % (A) 0 %; Eosinophils % (A) 1 %; HCT 39.2 % (39.0-53.0); HGB 12.7 gm/dL (13.0-17.5); Lymphocytes # (A) 1.5 k/uL (1.0-4.8); Lymphocytes % (A) 22 %; MCH 30.7 pg (25.0-35.0); MCHC 32.5 g/dL (31.0-37.0); MCV 94.4 fL (80.0-100.0); Mean Platelet Volume 7.7; Monocytes # (A) 0.5 k/uL (0-1.0); Monocytes % (A) 7 %; Neutrophils # (A) 4.7 k/uL (1.3-7.7); Neutrophils % (A) 70 %; Platelet Count 148 k/uL (150-450); RBC 4.15 m/uL (4.30-5.90); RDW 13.7 % (11.5-15.5); WBC 6.8 k/uL (3.8-10.6)
[2017-09-03 06:51] LABS: ALT 84 U/L (21-72); AST 51 U/L (17-59); Albumin 3.7 g/dL (3.5-5.0); Alkaline Phosphatase 45 U/L (38-126); Anion Gap 4 mmol/L; Blood Urea Nitrogen 17 mg/dL (9-20); Calcium 8.7 mg/dL (8.4-10.2); Carbon Dioxide 30 mmol/L (22-30); Chloride 105 mmol/L (98-107); Cholesterol 139 mg/dL (<200); Creatine Kinase 404 U/L (55-170); Glucose 102 mg/dL (74-99); HDL Cholesterol 46 mg/dL (40-60); LDL Cholesterol,Calculated 77 mg/dL (0-99); Phosphorus 2.2 mg/dL (2.5-4.5); Potassium 4.4 mmol/L (3.5-5.1); Sodium 139 mmol/L (137-145); Total Bilirubin 0.3 mg/dL (0.2-1.3); Total Protein 6.1 g/dL (6.3-8.2); Triglycerides 78 mg/dL (<150)
[2017-09-03] MEDS: HEPARIN SODIUM,PORCINE 5,000 UNIT/ML 1 ML VIAL SQ SCH ×2 (07:54→20:07)
[2017-09-03] MEDS: ASPIRIN 325 MG TAB PO SCH (07:54)
--- NOTE | 2017-09-03 08:29 | P.PN ---
Subjective Progress Note Date: 09/03/17 Principal diagnosis: This 42-year-old male is seen in consultation because of acute kidney injury and gap acidosis with a 3+ proteinuria. He was admitted after becoming unconscious after he used some cocaine and also possibly opiates. He responded to Narcan. He was started on IV fluids and has resolved his acute kidney injury, hyperkalemia and acidosis. Completely asymptomatic. Denies any headache nausea vomiting fever chills cough shortness of breath and. Good appetite is been able to walk around. No problems his urine or bowel habits. His creatinine is down to 1 bicarb is 30 anion gap is 4. His phosphorus slightly low at 2.2 magnesium 2. His CK is down to 404 from a peak of 666. His urine protein to creatinine ratio is down, on urinalysis showed 3+ but the urine protein to creatinine ratio is 10/132. Objective - Vital Signs Vital signs: Vital Signs Temp 98.6 F 09/03/17 07:48 Pulse 55 L 09/03/17 07:50 Resp 16 09/03/17 07:50 BP 121/64 09/03/17 07:48 Pulse Ox 99 09/03/17 07:48 Intake & Output 09/02/17 09/03/17 09/03/17 18:59 06:59 18:59 Intake Total 2480 Balance 2480 Weight 126.4 kg Intake: Intake, IV Titration 2000 Amount Sodium Chloride 0.9% 1, 1000 000 ml @ 999 mls/hr IV . Q1H1M ONE Rx#:[id number] Sodium Chloride 0.9% 1, 1000 000 ml @ 999 mls/hr IV . Q1H1M STA Rx#:[id number] Oral 480 Other: Voiding Method Toilet Toilet Toilet On exam concurrently is awake alert oriented HEENT exam no JVP neck is supple no facial asymmetry Lungs are clear to auscultation percussion good air entry bilaterally Heart sounds are unremarkable for any murmur rub gallop Abdomen soft nontender no organomegaly status masses Extremity exam was no edema Is warm to touch. Neurologically awake alert oriented no focal motor deficit comfortable. - Labs CBC & Chem 7: 09/03/17 06:03 09/03/17 06:03 Labs: Abnormal Lab Results - Last 24 Hours (Table) 07/28/18 07/28/18 07/28/18 Range/Units 11:45 11:45 11:45 WBC 13.4 H (3.8-10.6) k/uL RBC 4.11 L (4.30-5.90) m/uL Hgb 12.9 L (13.0-17.5) gm/dL Hct 38.7 L (39.0-53.0) % Plt Count (150-450) k/uL Neutrophils # 10.8 H (1.3-7.7) k/uL Monocytes # 1.2 H (0-1.0) k/uL Sodium 136 L (137-145) mmol/L Creatinine 1.56 H (0.66-1.25) mg/dL Glucose (74-99) mg/dL Phosphorus (2.5-4.5) mg/dL ALT 96 H (21-72) U/L Creatine Kinase (55-170) U/L Total Creatine Kinase 666 H (55-170) U/L CK-MB (CK-2) 8.2 H* (0.0-2.4) ng/mL Troponin I 0.103 H* (0.000-0.034) ng/mL Total Protein (6.3-8.2) g/dL 09/02/17 09/03/17 09/03/17 Range/Units 16:25 06:03 06:03 WBC (3.8-10.6) k/uL RBC 4.15 L (4.30-5.90) m/uL Hgb 12.7 L (13.0-17.5) gm/dL Hct (39.0-53.0) % Plt Count 148 L (150-450) k/uL Neutrophils # (1.3-7.7) k/uL Monocytes # (0-1.0) k/uL Sodium (137-145) mmol/L Creatinine (0.66-1.25) mg/dL Glucose 102 H (74-99) mg/dL Phosphorus 2.2 L (2.5-4.5) mg/dL ALT 84 H (21-72) U/L Creatine Kinase 404 H (55-170) U/L Total Creatine Kinase 604 H (55-170) U/L CK-MB (CK-2) 5.5 H* (0.0-2.4) ng/mL Troponin I 0.066 H* (0.000-0.034) ng/mL Total Protein 6.1 L (6.3-8.2) g/dL Assessment and Plan Assessment: Impression 1. Acute kidney injury secondary to cocaine and vasoconstriction in the renal vasculature. His CK is slightly high at 395, peaked at 666 and is down to 404 this morning, which is not expected to cause any rhabdomyolysis related myoglobinuric renal injury. His proteinuria 3+ on urinalysis, but his urine protein to creatinine ratio is normal at 10/132. His creatinine has improved from 2.5-2.1, and further down to 1 with hydration 2. His proteinuria 3+ on urinalysis, but his urine protein to creatinine ratio is normal at 10/132. 3. High Gap acidosis. His bicarb is 20 and anion gap is 19. The delta gap therefore is 7, indicating an element of metabolic alkalosis as well. The cause of the high anion gap acidosis is secondary to acute kidney injury, there might have been transient and lactic acidosis either from seizures or from the cocaine. His gap acidosis has resolved 4. Hyperkalemia secondary acute kidney injury and possible mild rhabdomyolysis , resolved. Recommendation 1. Discontinue IV fluids and he can be discharged from a nephrological perspective.
--- NOTE | 2017-09-03 11:49 | P.PN ---
Subjective Mr. Wagoner is seen and examined resting comfortably in bed in no acute distress. He denies symptoms of chest pain, shortness of breath, palpitations, dizziness , nausea, vomiting or diaphoresis. Hemoglobin 12.7, platelets 148, sodium 139, potassium 4.4, creatinine 1.0, LDL 77, CK 404. Blood pressure 121/64 heart rate 55 afebrile maintaining oxygen saturation on room air. Telemetry tracings been unremarkable. Echocardiogram obtained shows preserved left ventricular systolic function with ejection fraction 55-60% no evidence of valvular heart disease. Objective - Vital Signs Vital signs: Vital Signs Temp 98.6 F 09/03/17 07:48 Pulse 55 L 09/03/17 07:50 Resp 16 09/03/17 07:50 BP 121/64 09/03/17 07:48 Pulse Ox 99 09/03/17 07:48 Intake & Output 09/02/17 09/03/17 09/03/17 18:59 06:59 18:59 Intake Total 2480 240 Balance 2480 240 Weight 126.4 kg Intake: Intake, IV Titration 2000 Amount Sodium Chloride 0.9% 1, 1000 000 ml @ 999 mls/hr IV . Q1H1M ONE Rx#:[id number] Sodium Chloride 0.9% 1, 1000 000 ml @ 999 mls/hr IV . Q1H1M STA Rx#:[id number] Oral 480 240 Other: Voiding Method Toilet Toilet Toilet - Exam GENERAL: Well-appearing, well-nourished and in no acute distress. NECK: Supple without JVD or thyromegaly. LUNGS: Breath sounds clear to auscultation bilaterally. Respiration equal and unlabored. No wheezes, rales or rhonchi. HEART: Regular rate and rhythm without murmurs, rubs or gallops. S1 and S2 heard. EXTREMITIES: Normal range of motion, no edema. No clubbing or cyanosis. Peripheral pulses intact. - Labs CBC & Chem 7: 09/03/17 06:03 09/03/17 06:03 Labs: Abnormal Lab Results - Last 24 Hours (Table) 09/02/17 09/02/17 09/02/17 Range/Units 11:45 11:45 11:45 WBC 13.4 H (3.8-10.6) k/uL RBC 4.11 L (4.30-5.90) m/uL Hgb 12.9 L (13.0-17.5) gm/dL Hct 38.7 L (39.0-53.0) % Plt Count (150-450) k/uL Neutrophils # 10.8 H (1.3-7.7) k/uL Monocytes # 1.2 H (0-1.0) k/uL Sodium 136 L (137-145) mmol/L Creatinine 1.56 H (0.66-1.25) mg/dL Glucose (74-99) mg/dL Phosphorus (2.5-4.5) mg/dL ALT 96 H (21-72) U/L Creatine Kinase (55-170) U/L Total Creatine Kinase 666 H (55-170) U/L CK-MB (CK-2) 8.2 H* (0.0-2.4) ng/mL Troponin I 0.103 H* (0.000-0.034) ng/mL Total Protein (6.3-8.2) g/dL 09/02/17 09/03/17 09/03/17 Range/Units 16:25 06:03 06:03 WBC (3.8-10.6) k/uL RBC 4.15 L (4.30-5.90) m/uL Hgb 12.7 L (13.0-17.5) gm/dL Hct (39.0-53.0) % Plt Count 148 L (150-450) k/uL Neutrophils # (1.3-7.7) k/uL Monocytes # (0-1.0) k/uL Sodium (137-145) mmol/L Creatinine (0.66-1.25) mg/dL Glucose 102 H (74-99) mg/dL Phosphorus 2.2 L (2.5-4.5) mg/dL ALT 84 H (21-72) U/L Creatine Kinase 404 H (55-170) U/L Total Creatine Kinase 604 H (55-170) U/L CK-MB (CK-2) 5.5 H* (0.0-2.4) ng/mL Troponin I 0.066 H* (0.000-0.034) ng/mL Total Protein 6.1 L (6.3-8.2) g/dL Assessment and Plan Assessment: ASSESSMENT Drug overdose, Narcan given, positive for opiates and cocaine Nicotine dependence Troponin elevation Acute kidney injury, resolved Hyperkalemia, resolved Family history of coronary artery disease in maternal grandfather PLAN No further symptoms of chest discomfort. Telemetry tracings have been unremarkable. We recommend he undergo stress echocardiogram to assess for stress-induced cardiac ischemia. Nothing by mouth after midnight tonight. If stress test is normal he may be able to be discharged tomorrow. Tobacco and illicit drug use cessation recommended. Further recommendations to follow based upon clinical course. Nurse Practitioner note has been reviewed, I agree with a documented findings and plan of care. Patient was seen and examined.
--- NOTE | 2017-09-03 14:34 | P.PN ---
Subjective Progress Note Date: 09/03/17 Principal diagnosis: Acute kidney injury Cocaine overdose Patient is doing well today. He denies any chest pain. Lab work is mostly back to normal. Objective - Vital Signs Vital signs: Vital Signs Temp 98.4 F 09/03/17 11:59 Pulse 75 09/03/17 12:05 Resp 16 09/03/17 12:05 BP 127/86 09/03/17 11:59 Pulse Ox 98 09/03/17 11:59 Intake & Output 09/02/17 09/03/17 09/03/17 18:59 06:59 18:59 Intake Total 2480 240 Balance 2480 240 Weight 126.4 kg Intake: Intake, IV Titration 2000 Amount Sodium Chloride 0.9% 1, 1000 000 ml @ 999 mls/hr IV . Q1H1M ONE Rx#:[id number] Sodium Chloride 0.9% 1, 1000 000 ml @ 999 mls/hr IV . Q1H1M STA Rx#:[id number] Oral 480 240 Other: Voiding Method Toilet Toilet Toilet - Exam General: The patient is awake and alert, in no distress, and does not appear acutely ill. Eye: extra-ocular movements are intact; there is normal conjunctiva bilaterally. . Neck: The neck is supple, there is no tenderness or JVD. Cardiovascular: Normal S1-S2, no S3-S4, no murmurs. Respiratory: Lungs clear to auscultation bilaterally with no wheezes rhonchi or rales. Gastrointestinal: Abdomen is soft, nontender, nondistended, with no organomegaly. . Musculoskeletal: Normal ROM, no tenderness, There is no pedal edema. Neurological: There are no obvious motor or sensory deficits. Speech is normal. Skin: Skin is warm and dry and no rashes or lesions are noted. - Labs CBC & Chem 7: 09/03/17 06:03 09/03/17 06:03 Labs: Abnormal Lab Results - Last 24 Hours (Table) 09/02/17 09/02/17 09/03/17 Range/Units 16:25 16:25 06:03 RBC (4.30-5.90) m/uL Hgb (13.0-17.5) gm/dL Plt Count (150-450) k/uL Glucose 102 H (74-99) mg/dL Phosphorus 2.2 L (2.5-4.5) mg/dL ALT 84 H (21-72) U/L Creatine Kinase 404 H (55-170) U/L Total Creatine Kinase 604 H (55-170) U/L CK-MB (CK-2) 5.5 H* (0.0-2.4) ng/mL Troponin I 0.066 H* (0.000-0.034) ng/mL Total Protein 6.1 L (6.3-8.2) g/dL Hep C IgG Ab Reactive H (Non-Reactive) 09/03/17 Range/Units 06:03 RBC 4.15 L (4.30-5.90) m/uL Hgb 12.7 L (13.0-17.5) gm/dL Plt Count 148 L (150-450) k/uL Glucose (74-99) mg/dL Phosphorus (2.5-4.5) mg/dL ALT (21-72) U/L Creatine Kinase (55-170) U/L Total Creatine Kinase (55-170) U/L CK-MB (CK-2) (0.0-2.4) ng/mL Troponin I (0.000-0.034) ng/mL Total Protein (6.3-8.2) g/dL Hep C IgG Ab (Non-Reactive) Assessment and Plan Assessment: 1. Opiate overdose secondary to cocaine use reversed with Narcan by EMS 2. Altered mental status/unresponsiveness secondary to #1 3. Acute kidney injury: Possibly related to vasoconstriction. Seen and evaluated by nephrology. Improved with IV fluid hydration. Creatinine is back to normal. 4. Mild rhabdomyolysis: Repeat creatinine kinase showed improvement 5. Troponin elevation, most likely non-thrombotic troponin leak. Patient denies any chest pain. 12-lead ECG showed no acute ischemic changes. Echocardiogram ordered. Seen and evaluated by cardiology, Plan for stress echocardiogram in the morning. Continue telemetry monitoring. 6. Acute metabolic acidosis secondary to underlying kidney failure, resolved 7. Remote history of IV drug use, HIV screen ordered and pending 8. Polysubstance abuse including cocaine and opiates, patient was counseled extensively. He said that he only uses cocaine occasionally. He verbalized understanding so the risks. 9. DVT prophylaxis with subcu heparin 10. Chronic hepatitis C, diagnosed during this admission. Patient was counseled extensively about the nature of the disease. He was advised to follow -up as outpatient with his primary care physician to obtain hepatitis C viral load and evaluate if he is a candidate for treatment. All of his questions answered to his satisfaction. Plan for today : -Continue supportive care and encouraged oral hydration -Cardiac stress test in the morning, if negative patient will be discharged home.
[2017-09-03] MEDS: ACETAMINOPHEN TAB 325 MG TAB PO PRN (17:37)
[2017-09-04] MEDS: HEPARIN SODIUM,PORCINE 5,000 UNIT/ML 1 ML VIAL SQ SCH (07:47)
[2017-09-04 07:55] VITALS: RESP 17; TEMP 98.6
--- NOTE | 2017-09-04 08:48 | P.PN ---
Subjective Patient seen in follow-up for acute kidney injury. Acute kidney injury has resolved and creatinine is down to 1.0 today. Blood pressures controlled. Oral intake is good. Denies nausea vomiting or diarrhea. No active chest pain or shortness of breath. Scheduled for stress test today. Vital signs are stable. General: The patient appeared well nourished and normally developed. HEENT: Head exam is unremarkable. Neck is without jugular venous distension. LUNGS: Lungs are clear to auscultation and percussion. Breath sounds decreased. HEART: Rate and Rhythm are regular. First and second heart sounds normal. No murmurs, rubs or gallops. ABDOMEN: Abdominal exam reveals normal bowel sounds. Non-tender and non- distended. No evidence of peritonitis. EXTREMITITES: No clubbing, cyanosis, or edema. Objective - Vital Signs Vital signs: Vital Signs Temp 98.6 F 09/04/17 07:54 Pulse 55 L 09/04/17 07:54 Resp 17 09/04/17 07:54 BP 134/66 09/04/17 07:54 Pulse Ox 98 09/04/17 07:54 Intake & Output 09/03/17 09/04/17 09/04/17 18:59 06:59 18:59 Intake Total 720 960 Balance 720 960 Weight 94.3 kg Intake: Oral 720 960 Other: Voiding Method Toilet Toilet Toilet # Voids 3 - Labs CBC & Chem 7: 09/03/17 06:03 09/03/17 06:03 Labs: Abnormal Lab Results - Last 24 Hours (Table) 09/02/17 Range/Units 16:25 Hep C IgG Ab Reactive H (Non-Reactive) Assessment and Plan Plan: Assessment: 1. Nonoliguric acute kidney injury mostly prerenal secondary to cocaine- induced vasoconstriction. Resolved. 2. Proteinuria secondary to acute kidney injury. Normal upon quantification. 3. Metabolic acidosis secondary to acute kidney injury and metabolic acidosis. Improved. 4. Hyperkalemia secondary to acute kidney injury and rhabdomyolysis. Improved. 5. Mild rhabdomyolysis. 6. Polysubstance drug abuse. Plan: No changes from nephrology standpoint. Stress test today.
--- NOTE | 2017-09-04 10:34 | ECHOS ---
STRESS ECHOCARDIOGRAM INDICATIONS: Chest pain. MEDICATIONS: Multivitamin. BASELINE HEART RATE: 69 BASELINE BLOOD PRESSURE: 133/76 MAXIMUM HEART RATE: 154 MAXIMUM BLOOD PRESSURE: 156/70 85% MPHR: 151 100% MPHR: 178 METS: 13 MAXIMUM STAGE REACHED: 4 TOTAL EXERCISE TIME: 12:00 CLINICAL INFORMATION: Baseline EKG shows sinus rhythm, normal axis, normal intervals. Patient exercised on Bob protocol for a total of 12 minutes achieving 13 METS, 86% of predicted maximal heart rate without chest pain or diagnostic ST-segment depression. Baseline echo shows normal left ventricular size, wall motion and systolic function. postexercise there is normal hyperdynamic response of all segments of myocardium noted. CONCLUSIONS: 1. Good exercise tolerance. 2. Negative stress test by EKG criteria. 3. Negative stress echo. MMODL / IJN: [id number] /
[2017-09-04 11:31] VITALS: BP 146/84; PULSE 60
[2017-09-04] MEDS: ASPIRIN 325 MG TAB PO SCH (11:32)
--- NOTE | 2017-09-04 11:41 | P.DS ---
Providers Date of admission: 09/02/17 07:42 Expected date of discharge: 09/04/17 Attending physician: Sangeeta Toussaint MD Consults: 09/02/17 07:41 Consult Physician Routine Consulting Provider: Francis Lopez Consult Reason/Comments: elevated troponin Do you want consulting provider notified?: Yes 09/02/17 07:42 Consult Physician Routine Consulting Provider: Nickie Barillas Consult Reason/Comments: Acute renal failure Do you want consulting provider notified?: Yes Primary care physician: Stated None Hospital Course: 1. Opiate overdose secondary to cocaine use reversed with Narcan by EMS 2. Altered mental status/unresponsiveness secondary to #1 3. Acute kidney injury: Possibly related to vasoconstriction. Seen and evaluated by nephrology. Improved with IV fluid hydration. Creatinine is back to normal. 4. Mild rhabdomyolysis: Repeat creatinine kinase showed improvement 5. Troponin elevation, most likely non-thrombotic troponin leak. Patient denies any chest pain. 12-lead ECG showed no acute ischemic changes. Echocardiogram ordered. Seen and evaluated by cardiology, Stress echocardiogram done and negative 6. Acute metabolic acidosis secondary to underlying kidney failure, resolved 7. Remote history of IV drug use, HIV screen ordered and pending. Patient will follow-up with his PCP for result 8. Polysubstance abuse including cocaine and opiates, patient was counseled extensively. He said that he only uses cocaine occasionally. He verbalized understanding so the risks. 9. Chronic hepatitis C, diagnosed during this admission. Patient was counseled extensively about the nature of the disease. He was advised to follow -up as outpatient with his primary care physician to obtain hepatitis C viral load and evaluate if he is a candidate for treatment. All of his questions answered to his satisfaction. Patient Condition at Discharge: Fair Plan - Discharge Summary Discharge Rx Participant: No New Discharge Prescriptions: Continue Multivitamins, Thera [Multivitamin (formulary)] 1 tab PO DAILY Discharge Medication List Multivitamins, Thera [Multivitamin (formulary)] 1 tab PO DAILY 09/02/17 [History ] Follow up Appointment(s)/Referral(s): Rosie Campbell NPC [REFERRING] - 1-2 Days Discharge Disposition: HOME SELF-CARE
[2017-09-04 12:01] LABS: HIV 1 AB Non-Reactive (Non-Reactive); HIV AB P24 Non-Reactive (Non-Reactive); HIV P24 AG Non-Reactive (Non-Reactive)
--- NOTE | 2017-09-04 14:06 | CDI ---
Last Revision, January 2017 Documentation Clarification Form Date: 09/04/17 From: Angela Shipman RN Admit Date: 09/02/2017 7:42:00 AM Patient Name: Elias Wagoner Visit Number: [id number] ATTENTION: The Clinical Documentation Specialists (CDI) and [facility] Coding Staff appreciate your assistance in clarifying documentation. Please respond to the clarification below the line at the bottom and electronically sign. The CDI & [facility] Coding staff will review the response and follow-up if needed. Please note: Queries are made part of the Legal Health Record. If you have any questions, please contact the author of this message via ITS. Dr. Sangeeta Toussaint, Altered mental status is documented in the H&P, 09/03 PN and in the discharge summary. Can you please render your opinion in the following . Presented unresponsive with drug overdose on Opiates and cocaine. History/Risk factors :IV drug use, poly-substance abuse, chronic back pain, smoker, cocaine Clinical Indicators: Labs: WBC 20.3, MEUT 17.6, LYMP 0.8, MONO 1.7, APTT 19.5, K+ 6.5, C02 20, CR 2.50, AST 79, ALT 125, TOT CR KIN 395, CKMB 4.6, TROP 0.149 0.147 0.103 0.066 , TOT PRO 8.5, ALB 5.3 Altered mental status is charted in the H&P, PN and D/S New diagnosis of Hepatitis C Treatment: Narcan, IV fluids Consults: Nephrology, Cardiology Monitor Labs In order to accurately reflect the patients severity of illness, can you please clarify the cause of the patients altered mental status. Metabolic Encephalopathy Toxic Encephalopathy Hepatic Encephalopathy Indicate whether acute, sub-acute or chronic? Causal Condition: Alcoholism, Hepatitis, other disease process? Other, please specify Unable to determine Please continue to document in your progress notes, under the lines below and/ or in the discharge summary in order to capture severity of illness and risk of mortality. Include clinical findings that support your diagnosis. patient was not seen by me Dr Toussaint the patient was taken care of by Dr. Smallwood thank you MTDD
--- NOTE | 2017-09-04 16:06 | P.PN ---
Subjective Progress Note Date: 09/04/17 This is a pleasant 42-year-old gentleman with history of chronic back pain, smoking and illicit drug use including heroin and cocaine in the past. Presented to the emergency department after partying with friends and becoming unresponsive for which she required Narcan. Tested positive for both cocaine and opiates although patient denies taking any opiates or heroin. His chest x- ray on admission showed no active cardiopulmonary disease. EKG showed normal sinus rhythm without ischemic changes. Laboratory values showed white count 20, 000, potassium of 6.5, BUN of 19 and creatinine of 2.5 as well as elevated ALT and AST. We were asked to see the patient in consultation due to elevated troponins of 0.149 and 0.147. Patient underwent a stress echocardiographic study today that was negative for any reversible ischemia. He denied any chest discomfort breathing is stable. Hemodynamically he stable. Echo cardiac gram with Doppler study revealed a normal left ventricular systolic function. Objective - Vital Signs Vital signs: Vital Signs Temp 98.6 F 09/04/17 07:54 Pulse 60 09/04/17 11:30 Resp 17 09/04/17 11:30 BP 146/84 09/04/17 11:30 Pulse Ox 97 09/04/17 11:30 Intake & Output 09/03/17 09/04/17 09/04/17 18:59 06:59 18:59 Intake Total 720 960 Balance 720 960 Weight 94.3 kg Intake: Oral 720 960 Other: Voiding Method Toilet Toilet Toilet # Voids 3 - Exam PHYSICAL EXAMINATION: HEENT: Head is atraumatic, normocephalic. Pupils equal, round. Neck is supple. There is no elevated jugular venous pressure. HEART EXAMINATION: Heart sounds regular, S1 and S2 normal. No murmur or gallop heard. CHEST EXAMINATION: Lungs are clear to auscultation and precussion. No chest wall tenderness is noted on palpation or with deep breathing. ABDOMEN: Soft, nontender. Bowel sounds are heard. No organomegaly noted. EXTREMITIES: 2+ peripheral pulses with no evidence of peripheral edema and no calf tenderness noted. NEUROLOGIC patient is awake, alert and oriented x3. - Labs CBC & Chem 7: 09/03/17 06:03 09/03/17 06:03 Assessment and Plan Plan: Assessment: #1 overdose, given Narcan, tested positive for opiates and cocaine #2 nicotine dependence #3 history of CAD in maternal grandfather #4 elevated troponins #5 acute kidney injury Plan Stress echocardiographic study was negative for any reversible ischemia. From cardiology's perspective, patient may be able to be discharged. He does not need a follow-up appointment at [facility] at this time but he was instructed should he have the need he can make an appointment any time. DNP note has been reviewed, I agree with a documented findings and plan of care. Patient was seen and examined.
--- NOTE | 2017-09-05 08:14 | CDI ---
Last Revision, January 2017 Documentation Clarification Form Date: 09/04/2017 2:07:00 PM From: Angela Shipman Admit Date: 09/02/2017 7:42:00 AM Patient Name: Elias Wagoner Visit Number: [id number] Discharge Date: 09/04/17 ATTENTION: The Clinical Documentation Specialists (CDI) and [facility] Coding Staff appreciate your assistance in clarifying documentation. Please respond to the clarification below the line at the bottom and electronically sign. The CDI & [facility] Coding staff will review the response and follow-up if needed. Please note: Queries are made part of the Legal Health Record. If you have any questions, please contact the author of this message via ITS Dr. Yoon Smallwood, Altered mental status is documented in the H&P, 09/03 PN and in the discharge summary. Can you please render your opinion in the following . Present unresponsive with drug overdose on Opiates and cocaine. History/Risk factors:IV drug use, poly-substance abuse, chronic back pain, smoker, cocaine Clinical Indicators: Labs: WBC 20.3, MEUT 17.6, LYMP 0.8, MONO 1.7, APTT 19.5, K+ 6.5, C02 20, CR 2.50, AST 79, ALT 125, TOT CR KIN 395, CKMB 4.6, TROP 0.149 0.147 0.103 0.066, TOT PRO 8.5, ALB 5.3 Altered mental status is charted in the H&P, PN and D/S Treatment: Narcan, IV fluids Consults: Nephrology, Cardiology Monitor Labs In order to accurately reflect the patients severity of illness, can you please clarify which of the following the patient presented: Altered mental status Metabolic Encephalopathy Toxic Encephalopathy Indicate whether acute, sub-acute or chronic? Causal Condition: Alcoholism, Hepatitis, other disease process? Other, please specify Unable to determine Please continue to document in your progress notes, under the line below and/or in the discharge summary in order to capture severity of illness and risk of mortality. Include clinical findings that support your diagnosis. MTDD
--- NOTE | 2017-09-13 14:05 | CDI ---
Last Revision, January 2017 Documentation Clarification Form Date: 09/04/2017 2:07:00 PM From: Angela Shipman RN Admit Date: 09/02/2017 7:42:00 AM Patient Name: Elias Wagoner Visit Number: [id number] Discharge Date: 09/04/17 ATTENTION: The Clinical Documentation Specialists (CDI) and [facility] Coding Staff appreciate your assistance in clarifying documentation. Please respond to the clarification below the line at the bottom and electronically sign. The CDI & [facility] Coding staff will review the response and follow-up if needed. Please note: Queries are made part of the Legal Health Record. If you have any questions, please contact the author of this message via ITS. Dr. Yoon Smallwood MD, (second request), Altered mental status is documented in the H&P, 09/03 PN and in the discharge summary. Can you please render your opinion in the following . Present unresponsive with drug overdose on Opiates and cocaine. History/Risk factors:IV drug use, poly-substance abuse, chronic back pain, smoker, cocaine Clinical Indicators: Labs: WBC 20.3, K+ 6.5, CR 2.50, AST 79, ALT 125, TOT CR KIN 395, TROP 0.149 0.147 0.103 0.066 Altered mental status is charted in the H&P, PN and D/S, 09/03 PN patient is awake and alert. Acute kidney injury is documented throughout the chart D/S states Mild rhabdomyolysis and new diagnosis of Hepatitis C Treatment: Narcan, IV fluids Consults: Nephrology, Cardiology Monitor Labs In order to accurately reflect the patients severity of illness, can you please clarify which of the following the patient presented: Metabolic Encephalopathy Toxic Encephalopathy Hepatic Encephalopathy Indicate whether acute, sub-acute or chronic? Causal Condition: Alcoholism, Hepatitis, other disease process? Other, please specify Unable to determine Please continue to document in your progress notes, under the line below and/or in the discharge summary in order to capture severity of illness and risk of mortality. Include clinical findings that support your diagnosis. Metabolic Encephalopathy 2/2 opiate overdose MTDD
== END 2017-09-04 13:30 | disposition home or self-care (01) | DRG 917 ==
LOC: EC 23:37 → 6SEL 09-02 07:42 → UNDODISIN 09-03 14:30
PROVIDERS: ADMIT Internal Medicine; ATTEND Internal Medicine
DX: T40.1X1A Poisoning by heroin, accidental (unintentional), initial encounter (principal); G92 Toxic encephalopathy; E87.4 Mixed disorder of acid-base balance; M62.82 Rhabdomyolysis; N17.9 Acute kidney failure, unspecified; B18.2 Chronic viral hepatitis C; E87.5 Hyperkalemia; F14.129 Cocaine abuse with intoxication, unspecified; F17.200 Nicotine dependence, unspecified, uncomplicated; G89.29 Other chronic pain; M54.5 Low back pain; R07.89 Other chest pain; R77.9 Abnormality of plasma protein, unspecified; F11.10 Opioid abuse, uncomplicated; Z82.49 Family history of ischemic heart disease and other diseases of the circulatory system; Y92.9 Unspecified place or not applicable
CPT/HCPCS: 36415; 71046; 80053; 80061; 80074; 80306; 80320; 81001; 82550; 82553; 82570; 83735; 84100; 84156; 84484; 85025; 85610; 85730; 87390; 93005; 93306; 93351; 96360; 96361; 96374; 96375; 99285